=== PATIENT | male | born 2000 | race Caucasian/White ===

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

== ENCOUNTER 2019-04-10 20:42 | Emergency (ER) | payer BC, SELFPAY ==
[2019-04-10 20:43] VITALS: BP 128/75; PULSE 90; RESP 16; TEMP 36.7; O2SAT 98; BMI 22.0
--- NOTE | 2019-04-10 21:39 | EKG12_ITS ---
Test Reason : CP Blood Pressure : / mmHG Vent. Rate : 077 BPM Atrial Rate : 077 BPM P-R Int : 152 ms QRS Dur : 094 ms QT Int : 344 ms P-R-T Axes : 045 067 052 degrees QTc Int : 389 ms Sinus rhythm with marked sinus arrhythmia Otherwise normal ECG Confirmed by GLEN BRAGA, DACIA ([id number]), editor magazine BERTRAND BEAL ([id number]) on 04/15/2019 8:43:33 AM Referred By: SIA Confirmed By:ADCIA CARROLL MD
--- NOTE | 2019-04-10 21:40 | RAD_ITS ---
STUDY: X-RAY CHEST REASON FOR EXAM: Male, 19 years old. Cough and left-sided chest pain TECHNIQUE: Frontal and lateral views of the chest. COMPARISON: April 17, 2018 FINDINGS: The lungs are clear and expanded. There is no demonstrated pleural abnormality. Normal size heart. Normal mediastinum and everette. Normal visualized pulmonary arteries. Normal visualized aortic arch and descending thoracic aorta. Normal visualized thoracic spine. Normal visualized ribs, clavicles, and shoulders. There is no demonstrated abnormality of the visualized soft tissue structures of the upper abdomen. RAD/Chest PA and Lateral IMPRESSION: Normal x-ray examination of the chest. Electronically Signed: Nikolas Ruiz MD at 21:58 EDT , Service support ,
--- NOTE | 2019-04-10 21:40 | ED.VIS.CHEST ---
History of Present Illness Chief Complaint: Cough Informant: Patient Onset: Days - 2 Timing: Intermittent Quality: Sharp Location: Left Chest - radiates straight through to left upper back Current Severity: Moderate Maximum Severity: Moderate Worsened By: Breathing Relieved By: - - breathing easy Associated Symptoms: Dyspnea - occasionally, Cough. Negative for: Nausea, Vomiting, Diaphoresis, Fever Narrative: States he felt like he was getting bronchitis, coughing up brown than white sputum. No fevers. He has a left-sided chest discomfort that he only feels when he takes a deep breath. If he breathes easy, he does not have the pain. Leaning forward does not lessen the discomfort necessarily. No history of DVT or PE. No leg pain or swelling. No recent travel, hospitalization, surgery, immobilization otherwise. Past Medical History - Allergies and Home Meds Allergies/Adverse Reactions: Allergies No Known Allergies Allergy (Verified 04/10/19 20:45) Primary Care Physician: Ruma Marquez MD [Primary Care Provider] - Past Medical History: None Surgical History: no surgical history Smoking Status: Current every day smoker Drugs: None Review of Systems General: Denies: Chills, Fever ENT: Reports: Rhinorrhea. Denies: Bilateral ear pain, Sore throat Cardiovascular: Reports: Chest pain. Denies: Palpitations, Heart racing Respiratory: Reports: Dyspnea, Cough, Sputum. Denies: Dyspnea on exertion Gastrointestinal: Denies: Abdominal pain, Nausea, Vomiting, Diarrhea Musculoskeletal: Denies: Swelling, Extremity Pain Physical Exam Vital Signs/Narrative: Vital Signs Temp Pulse Resp BP Pulse Ox 04/10/19 20:43 98.1 F 90 16 128/75 H 98 Inital Vital Signs reviewed: Yes General: Well nourished, Well developed, No Acute Distress Head: Normocephalic, Atraumatic Eyes: Perrl, EOMI ENT: Moist mucous membranes, No rhinorrhea Neck: Supple, Nontender, No lymphadenopathy Cardiovascular: Regular rate, Regular rhythm, No murmurs. Negative for: Tachycardia Respiratory: No distress, CTA bilaterally, Chest nontender Extremities: Nontender, No edema. Negative for: Calf Tenderness Skin: Normal color, No rash, No Trauma Neurological: Alert, Oriented x3, Cranial nerves II-XII grossly intact, Normal Strength, Normal Sensation Psychological: Normal affect, Normal Mood Diagnostic/Tx/Re-eval Chest X-Ray - ED: 2 View, Read by ED Physician, Read by Radiologist, Normal, Heart, Lungs, Mediastinum, Bony Structures, No Acute Disease - Rhythm Strip Rhythm Strip: Sinus Rhythm Rate: 75 Ectopy: None - EKG Initial EKG Interpretation: Sinus Rhythm, No Acute Injury Pattern, S-T Elevation - Mild, diffuse, early repolarization versus pericarditis. Normal MO interval. Normal axis. No ST depressions. Treatment: Toradol IV - IM - Medical Decision Making EKG is consistent with pericarditis although it could also be consistent with early repolarization. He does not have an old EKG for comparison. His chest x-ray shows no evidence of a pneumothorax, cardiac silhouette enlargement, or pneumonia. He clinically is well with normal vital signs and has a PERC score of 0, ruling out pulmonary embolus in this acute scenario. He also has no audible rub or electrical alternans or suspicion for acute effusion at this time. He does not have symptoms of mononucleosis. He should follow-up, certainly the cause could be viral, NSAIDs are indicated, which helped here. Given appropriate discharge instructions and an senior front end developer to follow-up with, as he is now 19 and no longer will be seen in pediatrics. ED Disposition - Plan for ED Patient: Disposition: Home or Assisted Living Diagnosis: Acute bronchitis, Pericarditis Instructions: Acute Bronchitis, ED Chest Pain Pericarditis Prescriptions: Benzonatate [Tessalon Perle] 200 mg PO TID PRN PRN #20 cap PRN Reason: Cough Naproxen [Naprosyn] 500 mg PO BID PRN #20 tab Referrals: Carlos Ewing MD [STAFF PHYSICIAN] - 3-5 Days if not improving
--- NOTE | 2019-04-10 21:43 | ED.DCSUM_ITS ---
History of Present Illness Chief Complaint: Cough Informant: Patient Onset: Days - 2 Timing: Intermittent Quality: Sharp Location: Left Chest - radiates straight through to left upper back Current Severity: Moderate Maximum Severity: Moderate Worsened By: Breathing Relieved By: - - breathing easy Associated Symptoms: Dyspnea - occasionally, Cough. Negative for: Nausea, Vomiting, Diaphoresis, Fever Narrative: States he felt like he was getting bronchitis, coughing up brown than white sputum. No fevers. He has a left-sided chest discomfort that he only feels when he takes a deep breath. If he breathes easy, he does not have the pain. Leaning forward does not lessen the discomfort necessarily. No history of DVT or PE. No leg pain or swelling. No recent travel, hospitalization, surgery, immobilization otherwise. Past Medical History - Allergies and Home Meds Allergies/Adverse Reactions: Allergies No Known Allergies Allergy (Verified 04/10/19 20:45) Primary Care Physician: Ruma Marquez MD [Primary Care Provider] - Past Medical History: None Surgical History: no surgical history Smoking Status: Current every day smoker Drugs: None Review of Systems General: Denies: Chills, Fever ENT: Reports: Rhinorrhea. Denies: Bilateral ear pain, Sore throat Cardiovascular: Reports: Chest pain. Denies: Palpitations, Heart racing Respiratory: Reports: Dyspnea, Cough, Sputum. Denies: Dyspnea on exertion Gastrointestinal: Denies: Abdominal pain, Nausea, Vomiting, Diarrhea Musculoskeletal: Denies: Swelling, Extremity Pain Physical Exam Vital Signs/Narrative: Vital Signs Temp Pulse Resp BP Pulse Ox 04/10/19 20:43 98.1 F 90 16 128/75 H 98 Inital Vital Signs reviewed: Yes General: Well nourished, Well developed, No Acute Distress Head: Normocephalic, Atraumatic Eyes: Perrl, EOMI ENT: Moist mucous membranes, No rhinorrhea Neck: Supple, Nontender, No lymphadenopathy Cardiovascular: Regular rate, Regular rhythm, No murmurs. Negative for: Tachycardia Respiratory: No distress, CTA bilaterally, Chest nontender Extremities: Nontender, No edema. Negative for: Calf Tenderness Skin: Normal color, No rash, No Trauma Neurological: Alert, Oriented x3, Cranial nerves II-XII grossly intact, Normal Strength, Normal Sensation Psychological: Normal affect, Normal Mood Diagnostic/Tx/Re-eval Chest X-Ray - ED: 2 View, Read by ED Physician, Read by Radiologist, Normal, Heart, Lungs, Mediastinum, Bony Structures, No Acute Disease - Rhythm Strip Rhythm Strip: Sinus Rhythm Rate: 75 Ectopy: None - EKG Initial EKG Interpretation: Sinus Rhythm, No Acute Injury Pattern, S-T Elevation - Mild, diffuse, early repolarization versus pericarditis. Normal MT interval. Normal axis. No ST depressions. Treatment: Toradol IV - IM - Medical Decision Making EKG is consistent with pericarditis although it could also be consistent with early repolarization. He does not have an old EKG for comparison. His chest x- ray shows no evidence of a pneumothorax, cardiac silhouette enlargement, or pneumonia. He clinically is well with normal vital signs and has a PERC score of 0, ruling out pulmonary embolus in this acute scenario. He also has no audible rub or electrical alternans or suspicion for acute effusion at this time. He does not have symptoms of mononucleosis. He should follow-up, ce rtainly the cause could be viral, NSAIDs are indicated, which helped here. Given appropriate discharge instructions and an shift manager to follow-up with, as he is now 19 and no longer will be seen in pediatrics. ED Disposition - Plan for ED Patient: Disposition: Home or Assisted Living Diagnosis: Acute bronchitis, Pericarditis Instructions: Acute Bronchitis, ED Chest Pain Pericarditis Prescriptions: Benzonatate [Tessalon Perle] 200 mg PO TID PRN PRN #20 cap PRN Reason: Cough Naproxen [Naprosyn] 500 mg PO BID PRN #20 tab Referrals: Carlos Ewing MD [STAFF PHYSICIAN] - 3-5 Days if not improving
[2019-04-10] MEDS: Ketorolac 60 MG/2 ML Vial IM (22:12)
[2019-04-10 22:45] VITALS: RESP 18
== END 2019-04-10 22:46 | disposition home or self-care (01) ==
PROVIDERS: Emergency Provider Emergency Medicine; Family Provider Pediatrics; PCP Pediatrics
DX: J20.9 Acute bronchitis, unspecified (principal); I31.9 Disease of pericardium, unspecified; F17.200 Nicotine dependence, unspecified, uncomplicated
CPT/HCPCS: 71046; 93005; 96372; 99283

== ENCOUNTER → 2025-06-17 | Outpatient (CLI) | payer MEDICAID, SELFPAY ==
[2025-06-17 12:34] LABS: Color, Urine Straw (Yellow); Glucose, Dipstick Normal (Normal); Ketone-Dipstick Negative (Negative); Leukocyte Esterase-Dipstick Negative /ul (Negative); Nitrite-Dipstick Negative (Negative); Occult Blood-Urine Negative /ul (Negative); Protein-Dipstick Negative (Negative); Specific Gravity, Urine 1.005 (1.002-1.030); Urine Bilirubin Dipstick Negative (Negative)
[2025-06-17 12:41] LABS: Hematocrit 42.0 % (40-54); Hemoglobin 14.4 g/dL (13.0-16.5); Immature Granulocytes Count 0.140 X10^3/uL (0.0-0.0); Mean Corp Hgb Conc 34.3 g/dL (32-36); Mean Corpuscular Volume 89.7 fL (80-94); Mean Platelet Vol. 8.6 fl (6.2-12.0); NRBC Flagged by Analyzer 0 % (0-5); Platelet Count 231 K/mm3 (150-450); RBC Distribution Width CV 12.8 % (11.6-14.6); RBC Distribution Width SD 41.4 fl (35.1-43.9); Red Blood Count 4.68 M/mm3 (4.6-6.2); White Blood Count 8.6 K/mm3 (4.4-11.0)
[2025-06-17 13:15] LABS: AST(SGOT) 45 U/L (<=37); Alanine Aminotransfer ALT/SGPT 96 U/L (<=46); Albumin, Serum 4.5 g/dL (3.5-5.0); Alkaline Phosphatase 80 U/L (40-129); Anion Gap 12 (5-15); BUN 17 mg/dL (4-19); BUN/Creat Ratio 20.4 RATIO (10-20); Calcium,Total 9.6 mg/dL (7.6-11.0); Carbon Dioxide 22.3 mmol/L (21.0-32.0); Chloride 103 mmol/L (98-108); Globulin 2.4 g/dL (2.2-4.2); Glucose 93 mg/dL (70-99); HIV Nonreactive (Nonreactive); Potassium 4.5 mmol/L (3.3-5.1); Syphilis Antibodies Nonreactive (Nonreactive)
[2025-06-17 13:33] LABS: Cholesterol 220 mg/dL (<=200); Low Density Lipoprotein Calc. 113 mg/dL; Triglycerides 249 mg/dL; Very Low Density Lipoprotein 50 mg/dL (5-40); cholesterol:hdl ratio screen 3.84
[2025-06-18 05:07] LABS: HEPATITIS B SURFACE AG Negative (Negative); Hep C Antibodies Non Reactive (Non Reactive)
== END | disposition home or self-care (01) ==
DX: Z00.00 Encounter for general adult medical examination without abnormal findings (principal); Z72.51 High risk heterosexual behavior
CPT/HCPCS: 36415; 80053; 80061; 80074; 81002; 83036; 84443; 85025; 86703; 86780; 87491; 87591; 87661